=== PATIENT | male | born 1990 | race Caucasian/White ===

== ENCOUNTER 2016-05-23 16:42 | Emergency (ER) | payer BC ==
[2016-05-23] MEDS ORDERED: MORPHINE SULFATE 4 MG INJ IV ONE (16:51)
[2016-05-23 16:52] VITALS: O2SAT 94
[2016-05-23] MEDS ORDERED: Sodium Chloride 0.9% 1000 ML 1,000 ML ONE (16:56)
[2016-05-23] MEDS ORDERED: MORPHINE SULFATE 4 MG INJ ONE (16:56)
[2016-05-23] MEDS ORDERED: Sodium Chloride 0.9% 1000 ML 1,000 ML IV SCH (17:00)
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
[2016-05-23] MEDS ORDERED: BACIGUENT PACKET TP ONE (18:17)
[2016-05-23] MEDS ORDERED: BACIGUENT PACKET ONE (18:17)
[2016-05-23 18:47] VITALS: BP 128/69; PULSE 76
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
== END 2016-05-23 18:46 | disposition home or self-care (01) ==
LOC: ED 16:42
PROC: 0HQFXZZ Repair Right Hand Skin, External Approach (ICD-10-PCS; principal; 2016-05-23)
DX: S00.83XA Contusion of other part of head, initial encounter (principal); S60.221A Contusion of right hand, initial encounter; S01.81XA Laceration without foreign body of other part of head, initial encounter; S61.214A Laceration without foreign body of right ring finger without damage to nail, initial encounter; W33.02XA Accidental discharge of hunting rifle, initial encounter
CPT/HCPCS: 12001; 36000; 70486; 73130; 96360; 96361; 96374; 99283; J2270

== ENCOUNTER 2017-03-21 18:00 | Emergency (ER) | payer BC ==
[2017-03-21] MEDS ORDERED: Phenergan 25 MG INJ IV ONE (18:22)
[2017-03-21] MEDS ORDERED: Sodium Chloride 0.9% 1000 ML 1,000 ML IV STA (18:22)
[2017-03-21] MEDS ORDERED: Phenergan 25 MG INJ ONE (18:34)
[2017-03-21] MEDS ORDERED: Sodium Chloride 0.9% 1000 ML 1,000 ML ONE (18:34)
--- NOTE | 2017-03-21 18:39 | ERPHSYRPT ---
- History of Present Illness Time Seen by Provider: 03/21/17 18:10 Source: patient, other ([place]) Exam Limitations: no limitations Patient Subjective Stated Complaint: pt here for loose stools, vomiitng today, and back pain for 2 weeks with no injury Triage Nursing Assessment: pt alert, resp easy, skin w/d pink, moves all ext well, Physician History: FOR THE PAST 2 WEEKS PT HAS HAD NASAL CONGESTION, MID BACK PAIN AND COUGH PRODUCTIVE OF YELLOW PHLEGM; FOR THE PAST 2 DAYS A LEFT EARACHE AND SORE THROAT ; TODAY CHILLS, VOMITING X11 AND DIARRHEA X3 WITHOUT BLOOD. Allergies/Adverse Reactions: No Known Drug Allergies Allergy (Verified 03/21/17 18:20) Home Medications: Alprazolam 1 mg [Xanax 1 mg] 1 mg DAILY 03/21/17 [History] Quetiapine Fumarate [Seroquel] 25 mg DAILY 03/21/17 [History] Hx Tetanus, Diphtheria Vaccination/Date Given: Yes (UP TO DATE) Hx Influenza Vaccination/Date Given: No Hx Pneumococcal Vaccination/Date Given: No Immunizations Up to Date: Yes - Review of Systems Constitutional: Chills Ears, Nose, & Throat: Ear Pain, Nose Congestion, Throat Pain Respiratory: Cough Abdominal/Gastrointestinal: Vomiting, Diarrhea Musculoskeletal: Back Pain All Other Systems: Reviewed and Negative - Past Medical History Pertinent Past Medical History: No Neurological History: No Pertinent History - Past Surgical History Past Surgical History: Yes Musculoskeletal: Orthopedic Surgery - Social History Smoking Status: Never smoker Exposure to second hand smoke: No Drug Use: none Patient Lives Alone: No - Nursing Vital Signs Nursing Vital Signs: Initial Vital Signs Temperature 98.3 F 03/21/17 18:13 Pulse Rate 84 03/21/17 18:13 Respiratory Rate 16 03/21/17 18:13 Blood Pressure 120/82 03/21/17 18:13 O2 Sat by Pulse Oximetry 96 03/21/17 18:13 Pain Scale Pain Intensity 4 - Physical Exam General Appearance: alert Eye Exam: PERRL/EOMI Ears, Nose, Throat Exam: TM abnormal (L) (LEFT TM ERYTHEMATOUS), pharyngeal erythema Neck Exam: normal inspection Respiratory Exam: lungs clear Cardiovascular Exam: normal heart sounds Gastrointestinal/Abdomen Exam: soft, other (B.S. MILDLY HYPERACTIVE AND NORMOTONIC) Back Exam: normal inspection, normal range of motion Extremity Exam: normal inspection, No pedal edema Neurologic Exam: alert, cooperative Skin Exam: warm, dry SpO2 Interpretation: normal SpO2: 96 Oxygen Delivery: Room Air - Course Nursing assessment & vital signs reviewed: Yes Ordered Tests: Active Orders 24 hr Category Date Time Status Clean Catch Urine Specimen STAT Care 03/21/17 20:55 Active AMYLASE Stat Lab 03/21/17 18:25 Completed CBC W DIFF Stat Lab 03/21/17 18:25 Completed CMP Stat Lab 03/21/17 18:25 Completed CULTURE, THROAT Stat Lab 03/21/17 18:25 Received LIPASE Stat Lab 03/21/17 18:25 Completed MAG [MAGNESIUM] Stat Lab 03/21/17 18:25 Completed [place] Screen Stat Lab 03/21/17 18:25 Completed STREP SCREEN-BETA A Stat Lab 03/21/17 18:25 Completed UA W/RFX UR CULTURE Stat Lab 03/21/17 21:05 Completed Medication Summary Discontinued Medications Generic Name Dose Route Start Last Admin Trade Name Freq PRN Reason Stop Dose Admin Sodium Chloride 1,000 mls @ 999 mls/hr 03/21/17 18:22 03/21/17 18:36 Sodium Chloride 0.9% 1000 Ml IV 03/21/17 19:22 999 mls/hr .Q1H1M STA Administration Sodium Chloride Confirm 03/21/17 18:34 Sodium Chloride 0.9% 1000 Ml Administered 03/21/17 18:35 Dose 1,000 mls @ ud .ROUTE .STK-MED ONE Magnesium Sulfate/Dextrose 100 mls @ 200 mls/hr 03/21/17 19:42 03/21/17 19:48 Magnesium 1 Gm / 100 Ml D5w IV 03/21/17 20:11 200 mls/hr STAT ONE Administration Magnesium Sulfate/Dextrose Confirm 03/21/17 19:47 Magnesium 1 Gm / 100 Ml D5w Administered 03/21/17 19:48 Dose 100 mls @ ud IV .STK-MED ONE Promethazine HCl 12.5 mg 03/21/17 18:22 03/21/17 18:34 Phenergan 25 Mg Inj IV 03/21/17 18:23 12.5 mg STAT ONE Administration Promethazine HCl Confirm 03/21/17 18:34 Phenergan 25 Mg Inj Administered 03/21/17 18:35 Dose 25 mg .ROUTE .STK-MED ONE Lab/Rad Data: Laboratory Result Diagrams 03/21/17 18:25 03/21/17 18:25 Laboratory Results 03/21/17 03/21/17 03/21/17 Range/Units 21:05 18:25 18:25 WBC (4.0-10.5) K/mm3 RBC (4.1-5.6) M/mm3 Hgb (12.5-18.0) gm/dl Hct (42-50) % MCV (78-100) fl MCH (26-32) pg MCHC (32-36) g/dl RDW (11.5-14.0) % Plt Count (150-450) K/mm3 MPV (6-9.5) fl Gran % (36.0-66.0) % Lymphocytes % (24.0-44.0) % Monocytes % (0.0-12.0) % Eosinophils % (0.00-5.0) % Basophils % (0.0-0.4) % Basophils # (0-0.4) Sodium (136-145) mEq/L Potassium (3.5-5.1) mEq/L Chloride (98-107) mEq/L Carbon Dioxide (21-32) mEq/L Anion Gap (5-15) MEQ/L BUN (9-20) mg/dL Creatinine (0.55-1.30) mg/dl Estimated GFR ML/MIN Glucose (70-110) MG/DL Calcium (8.5-10.1) mg/dL Magnesium (1.8-2.4) mg/dL Total Bilirubin (0.2-1.0) mg/dL AST (15-37) U/L ALT (12-78) U/L Alkaline Phosphatase (46-116) U/L Serum Total Protein (6.4-8.2) gm/dL Albumin (3.4-5.0) g/dL Amylase (25-115) U/L Lipase (73-393) U/L Ur Collection Type CCMS Urine Color YELLOW (YELLOW) Urine Appearance CLEAR (CLEAR) Urine pH 7.0 (5-6) Ur Specific [place] 1.005 (1.005-1.025) Urine Protein NEGATIVE (Negative) Urine Ketones NEGATIVE (NEGATIVE) Urine Blood NEGATIVE (0-5) Damon/ul Urine Nitrite NEGATIVE (NEGATIVE) Urine Bilirubin NEGATIVE (NEGATIVE) Urine Urobilinogen NORMAL (0-1) mg/dL Ur Leukocyte Esterase NEGATIVE (NEGATIVE) Urine Culture Reflexed NO (NO) Urine Glucose NEGATIVE (NEGATIVE) mg/dL Monoscreen NEGATIVE (Negative) Influenza Type A Ag NEGATIVE (NEGATIVE) Influenza Type B Ag NEGATIVE (NEGATIVE) RSV (PCR) NEGATIVE (Negative) Streptococcus Screen (Negative) Specimen Received 03-21-172 03/21/17 03/21/17 03/21/17 Range/Units 18:25 18:25 18:25 WBC (4.0-10.5) K/mm3 RBC (4.1-5.6) M/mm3 Hgb (12.5-18.0) gm/dl Hct (42-50) % MCV (78-100) fl MCH (26-32) pg MCHC (32-36) g/dl RDW (11.5-14.0) % Plt Count (150-450) K/mm3 MPV (6-9.5) fl Gran % (36.0-66.0) % Lymphocytes % (24.0-44.0) % Monocytes % (0.0-12.0) % Eosinophils % (0.00-5.0) % Basophils % (0.0-0.4) % Basophils # (0-0.4) Sodium 142 (136-145) mEq/L Potassium 4.3 (3.5-5.1) mEq/L Chloride 105 (98-107) mEq/L Carbon Dioxide 29.2 (21-32) mEq/L Anion Gap 12.4 (5-15) MEQ/L BUN 19 (9-20) mg/dL Creatinine 1.18 (0.55-1.30) mg/dl Estimated GFR > 60 ML/MIN Glucose 102 (70-110) MG/DL Calcium 8.8 (8.5-10.1) mg/dL Magnesium 1.6 L (1.8-2.4) mg/dL Total Bilirubin 0.40 (0.2-1.0) mg/dL AST 17 (15-37) U/L ALT 26 (12-78) U/L Alkaline Phosphatase 73 (46-116) U/L Serum Total Protein 8.1 (6.4-8.2) gm/dL Albumin 4.4 (3.4-5.0) g/dL Amylase 51 (25-115) U/L Lipase 174 (73-393) U/L Ur Collection Type Urine Color (YELLOW) Urine Appearance (CLEAR) Urine pH (5-6) Ur Specific [place] (1.005-1.025) Urine Protein (Negative) Urine Ketones (NEGATIVE) Urine Blood (0-5) Damon/ul Urine Nitrite (NEGATIVE) Urine Bilirubin (NEGATIVE) Urine Urobilinogen (0-1) mg/dL Ur Leukocyte Esterase (NEGATIVE) Urine Culture Reflexed (NO) Urine Glucose (NEGATIVE) mg/dL Monoscreen (Negative) Influenza Type A Ag (NEGATIVE) Influenza Type B Ag (NEGATIVE) RSV (PCR) (Negative) Streptococcus Screen NEGATIVE (Negative) Specimen Received 03/21/17 Range/Units 18:25 WBC 10.2 (4.0-10.5) K/mm3 RBC 4.50 (4.1-5.6) M/mm3 Hgb 14.6 (12.5-18.0) gm/dl Hct 44.6 (42-50) % MCV 99.1 (78-100) fl MCH 32.4 H (26-32) pg MCHC 32.7 (32-36) g/dl RDW 12.9 (11.5-14.0) % Plt Count 215 (150-450) K/mm3 MPV 9.3 (6-9.5) fl Gran % 84.1 H (36.0-66.0) % Lymphocytes % 6.4 L (24.0-44.0) % Monocytes % 8.8 (0.0-12.0) % Eosinophils % 0.6 (0.00-5.0) % Basophils % 0.1 (0.0-0.4) % Basophils # 0.01 (0-0.4) Sodium (136-145) mEq/L Potassium (3.5-5.1) mEq/L Chloride (98-107) mEq/L Carbon Dioxide (21-32) mEq/L Anion Gap (5-15) MEQ/L BUN (9-20) mg/dL Creatinine (0.55-1.30) mg/dl Estimated GFR ML/MIN Glucose (70-110) MG/DL Calcium (8.5-10.1) mg/dL Magnesium (1.8-2.4) mg/dL Total Bilirubin (0.2-1.0) mg/dL AST (15-37) U/L ALT (12-78) U/L Alkaline Phosphatase (46-116) U/L Serum Total Protein (6.4-8.2) gm/dL Albumin (3.4-5.0) g/dL Amylase (25-115) U/L Lipase (73-393) U/L Ur Collection Type Urine Color (YELLOW) Urine Appearance (CLEAR) Urine pH (5-6) Ur Specific [place] (1.005-1.025) Urine Protein (Negative) Urine Ketones (NEGATIVE) Urine Blood (0-5) Damon/ul Urine Nitrite (NEGATIVE) Urine Bilirubin (NEGATIVE) Urine Urobilinogen (0-1) mg/dL Ur Leukocyte Esterase (NEGATIVE) Urine Culture Reflexed (NO) Urine Glucose (NEGATIVE) mg/dL Monoscreen (Negative) Influenza Type A Ag (NEGATIVE) Influenza Type B Ag (NEGATIVE) RSV (PCR) (Negative) Streptococcus Screen (Negative) Specimen Received - Departure Time of Disposition: 22:10 Departure Disposition: Home Clinical Impression: VOMITING, DIARRHEA, HYPOMAGNESEMIA, LOM, PHARYNGITIS Condition: Stable Critical Care Time: No Referrals: SAMRA MCCURDY [Primary Care Provider] - Instructions: Vomiting -- Adult, Diarrhea and Traveler's Diarrhea -- Adult, Pharyngitis/Tonsillopharyngitis -- Adult, Otitis Media (Middle Ear Infection) Additional Instructions: FOLLOW UP WITH PRIVATE DOCTOR TOMORROW. Prescriptions: Ondansetron [Zofran Odt] 4 mg PO Q4H PRN PRN #14 tab.rapdis PRN Reason: Nausea/Vomiting Azithromycin 250 mg [Zithromax 250 MG TABLET] 250 mg PO ZPACK #6 tablet
[2017-03-21 18:42] LABS: BASOPHIL % 0.1 % (0.0-0.4); Eosinophil % 0.6 % (0.00-5.0); Granulocytes % 84.1 % (36.0-66.0); Lymphocytes % 6.4 % (24.0-44.0); Mean Cell Volume 99.1 fl (78-100); Mean Corpuscular Hemoglobin 32.4 pg (26-32); Mean Platelet Volume 9.3 fl (6-9.5); Monocytes % 8.8 % (0.0-12.0); Platelet Count 215 K/mm3 (150-450); Red Cell Distribution Width 12.9 % (11.5-14.0); White Blood Count 10.2 K/mm3 (4.0-10.5)
[2017-03-21 19:04] LABS: ALBUMIN 4.4 g/dL (3.4-5.0); ALKALINE PHOSPHATASE 73 U/L (46-116); ANION GAP 12.4 MEQ/L (5-15); BLOOD UREA NITROGEN 19 mg/dL (9-20); CHLORIDE 105 mEq/L (98-107); Carbon Dioxide 29.2 mEq/L (21-32); Glucose 102 MG/DL (70-110); LIPASE 174 U/L (73-393); Potassium 4.3 mEq/L (3.5-5.1); SGOT/AST 17 U/L (15-37); SGPT/ALT 26 U/L (12-78); SODIUM 142 mEq/L (136-145); Total Protein 8.1 gm/dL (6.4-8.2)
[2017-03-21] MEDS ORDERED: Magnesium 1 Gm / 100 Ml D5W*** 100 ML IV ONE ×2 (19:42→19:47)
[2017-03-21 21:09] LABS: Bilirubin NEGATIVE (NEGATIVE); Blood NEGATIVE Ery/ul (0-5); Collection Type CCMS; Glucose NEGATIVE (NEGATIVE); Leukocyte Esterase NEGATIVE (NEGATIVE)
[2017-03-21 21:10] LABS: ADD URINE CULTURE? NO (NO); COMPLETE URINE MICROSCOPIC? NO
[2017-03-21] MEDS ORDERED: ROCEPHIN 1 Gm-D5w 50 ml Bag** 1 G/50 ML IVPB IV STA (22:10)
[2017-03-21 22:11] VITALS: O2SAT 96
[2017-03-21] MEDS ORDERED: Zofran 4 MG/2 ML VIAL IV ONE (22:11)
[2017-03-21] MEDS ORDERED: ROCEPHIN 1 Gm-D5w 50 ml Bag** 1 G/50 ML IVPB IV ONE (22:19)
[2017-03-21] MEDS ORDERED: Zofran 4 MG/2 ML VIAL ONE (22:19)
[2017-03-21 23:03] VITALS: BP 124/72; PULSE 81
== END 2017-03-21 23:25 | disposition home or self-care (01) ==
LOC: ED 18:00
DX: R11.2 Nausea with vomiting, unspecified (principal); R19.7 Diarrhea, unspecified; E83.42 Hypomagnesemia; H66.92 Otitis media, unspecified, left ear; J02.9 Acute pharyngitis, unspecified
CPT/HCPCS: 36415; 80053; 81002; 82150; 83690; 83735; 85025; 86308; 87070; 87430; 87631; 96360; 96365; 96367; 96374; 96375; 99284; J0696; J2405; J2550; J3475

== ENCOUNTER 2020-12-31 15:42 | Emergency (ER) | payer BC, OTHER ==
--- NOTE | 2020-12-31 17:16 | XRAY ---
Indication: Pain. Comparison: None 3 nonweightbearing views left foot demonstrates old calcaneus fracture with intact orthopedic screw. No other bony, articular, or soft tissue abnormalities.
--- NOTE | 2020-12-31 17:16 | XRAY ---
Indication: Pain. Comparison: None 3 view left ankle demonstrates old calcaneus fracture with intact orthopedic screw. No other bony, articular, or soft tissue abnormalities.
--- NOTE | 2020-12-31 17:16 | XRAY ---
Indication: Pain. Comparison: None 3 view left knee demonstrates normal bones, articulation, and soft tissues.
[2020-12-31 18:08] VITALS: BP 129/72; PULSE 74; O2SAT 98
--- NOTE | 2020-12-31 18:24 | ERPHSYRPT ---
- History of Present Illness Time Seen by Provider: 12/31/20 16:59 Source: patient Patient Subjective Stated Complaint: L foot/ankle pain. Triage Nursing Assessment: pt to ED c/o L foot/ankle pain. pt has had multiple surgeries and chronic pain with this area. rates 10/15 now. is still working and ambulatory on L foot. reports he was supposedto have MRI around 1 year ago but was not able to at the time. now is wanting to be seen again for increasing pain and problems in regards to L ankle. Physician History: Patient is a 30-year-old male with a history of chronic left ankle pain. Patient states he fractured his calcaneus and ankle when he was 18 years old. Patient states that as of late he has been experiencing worsening ankle pain. No trauma. Patient states his job requires prolonged standing. He believes that his work is exacerbating his pain. Patient states the pain is so bad he has to crawl into his house after work. Symptoms are mild to moderate in intensity. Pain worse after working long periods of time. No numbness tingling or weakness. Patient has chronic limited range of motion his left ankle from his previous injury. Patient otherwise feels well he voices no other complaints concerns at this time. Method of Injury: sports injury (Football injury 12 years ago.) Occurred: other (Chronic pain progressively worsening over the past several weeks.) Quality: constant, aching Severity of Pain-Max: moderate Severity of Pain-Current: mild Lower Extremities Pain: ankle: left Modifying Factors: Improves With: other (Weightbearing left lower extremity reproduces pain.) Associated Symptoms: none Allergies/Adverse Reactions: No Known Drug Allergies Allergy (Verified 03/21/17 18:20) Home Medications: ALPRAZolam 1 MG [Xanax 1 mg] 1 mg DAILY 03/21/17 [History] Quetiapine Fumarate [Seroquel] 25 mg DAILY 03/21/17 [History] Hx Tetanus, Diphtheria Vaccination/Date Given: Yes (UP TO DATE) Hx Influenza Vaccination/Date Given: No Hx Pneumococcal Vaccination/Date Given: No Immunizations Up to Date: No Travel Risk - International Travel Have you traveled outside of the country in past 3 weeks: No - Coronavirus Screening Are you exhibiting any of the following symptoms?: No Close contact with a COVID-19 positive Pt in past 14-21 Days: No - Vaccine Status Have you recieved a Covid-19 vaccination: No - Review of Systems Constitutional: No Symptoms, No Fever, No Chills Eyes: No Symptoms Ears, Nose, & Throat: No Symptoms Respiratory: No Symptoms, No Cough, No Dyspnea Cardiac: No Symptoms, No Chest Pain, No Edema, No Syncope Abdominal/Gastrointestinal: No Symptoms, No Abdominal Pain, No Nausea, No Vomiting, No Diarrhea Genitourinary Symptoms: No Symptoms, No Dysuria Musculoskeletal: No Symptoms, No Back Pain, No Neck Pain Skin: No Symptoms, No Rash Neurological: No Symptoms, No Dizziness, No Focal Weakness, No Sensory Changes Psychological: No Symptoms Endocrine: No Symptoms Hematologic/Lymphatic: No Symptoms Immunological/Allergic: No Symptoms All Other Systems: Reviewed and Negative - Past Medical History Pertinent Past Medical History: No Neurological History: No Pertinent History - Past Surgical History Past Surgical History: Yes Musculoskeletal: Orthopedic Surgery Other Surgical History: multi surgeries to L ankle/foot - Social History Smoking Status: Never smoker Exposure to second hand smoke: No Drug Use: none Patient Lives Alone: No - Nursing Vital Signs Nursing Vital Signs: Initial Vital Signs Pulse Rate 89 12/31/20 16:47 Respiratory Rate 16 12/31/20 16:47 Blood Pressure 142/94 12/31/20 16:47 O2 Sat by Pulse Oximetry 95 12/31/20 16:47 Pain Scale Pain Intensity 6 - Physical Exam General Appearance: no apparent distress, alert Eyes, Ears, Nose, Throat Exam: moist mucous membranes Neck Exam: non-tender, supple Cardiovascular/Respiratory Exam: chest non-tender, normal breath sounds, regular rate/rhythm, no respiratory distress Gastrointestinal/Abdominal Exam: non-tender, soft Back Exam: normal inspection, normal range of motion, No vertebral tenderness Hips Exam: bilateral: non-tender, normal inspection, normal range of motion, no evidence of injury Legs Exam: bilateral leg: non-tender, normal inspection, normal range of motion, no evidence of injury Knees Exam: bilateral knee: non-tender, normal inspection, normal range of motion, no evidence of injury Ankle Exam: right ankle: non-tender, normal inspection, normal range of motion, no evidence of injury, left ankle: soft tissue tenderness, swelling, other (Left ankle has minimal swelling. Overlying soft tissue intact. No signs of blunt trauma. No ecchymosis. No deformity. Extremities neurovascular intact distally.) Foot Exam: bilateral foot: non-tender, normal inspection, normal range of motion, no evidence of injury Neuro/Tendon Exam: normal sensation, normal motor functions Mental Status Exam: alert, oriented x 3, cooperative Skin Exam: normal color, warm, dry SpO2 Interpretation: normal SpO2: 98 O2 Delivery: Room Air - Course Nursing assessment & vital signs reviewed: Yes - Radiology Exams Ankle X-ray Interpretation: Teleradiologist Report (No acute fractures or dislocations.) Foot X-ray Interpretation: Teleradiologist Report (No acute fractures or dislocations. Old healed calcaneal fracture. Intact hardware) Knee X-ray Interpretation: Teleradiologist Report (No fractures or dislocations.) Ordered Tests: Active Orders 24 hr Category Date Time Status ANKLE (3 VIEWS) Stat Exams 12/31/20 16:45 Completed FOOT (MINIMUM 3 VIEWS) Stat Exams 12/31/20 16:46 Completed KNEE (3 VIEWS) Stat Exams 12/31/20 16:45 Completed - Progress Progress: improved Progress Note: Patient reassessed. Patient's pain significantly improves at rest. X-rays show old calcaneal fracture with intact hardware. No acute fractures. No soft tissue abnormalities. We will refer patient to our podiatry clinic for further evaluation and treatment. Patient voiced no other complaints at this time. Patient will follow up within 48 hours as discussed. Portions of this note were created with voice recognition technology. There may be grammatical, spelling, punctuation or sound alike errors 12/31/20 18:27 Counseled pt/family regarding: diagnosis, need for follow-up, rad results - Departure Departure Disposition: Home Clinical Impression: Ankle pain, left Condition: Stable Critical Care Time: No Referrals: DOCTOR,NO FAMILY [Primary Care Provider] - WALLY ONEILL DPM [ACTIVE STAFF] - Additional Instructions: Discharge/Care Plan RG GUPTAYamila ORTA was seen on 12/31/20 in the Emergency Room. The patient was counseled regarding Diagnosis,Lab results, Imaging studies, need for follow up and when to return to the Emergency Room. Prescriptions given: Discharge Note I have spoken with the patient and/or caregivers. I have explained the patient's condition, diagnosis and treatment plan based on the information available to me at this time. I have answered the patient's and/or caregiver's questions and addressed any concerns. The patient and/or caregivers have as good understanding of the patient's diagnosis, condition and treatment plan as can be expected at this point. The vital signs have been stable. The patient's condition is stable and appropriate for discharge from the emergency department. The patient will pursue further outpatient evaluation with the primary care physician or other designated or consulting physician as outlined in the discharge instructions. The patient and/or caregivers are agreeable to this plan of care and follow-up instructions have been explained in detail. The patient and/or caregivers have received these instruction. The patient/and or caregivers are aware that any significant change in condition or worsening of symptoms should prompt an immediate return to this or the closest emergency department or call 911.
== END 2020-12-31 18:47 | disposition home or self-care (01) ==
LOC: ED 15:42
DX: M25.572 Pain in left ankle and joints of left foot (principal); Z98.890 Other specified postprocedural states
CPT/HCPCS: 73562; 73610; 73630; 99284; L4386

== ENCOUNTER 2021-03-26 09:46 | Observation (INO) | payer OTHER ==
[~2021-03-26 09:46] MED LIST: BRIDION 200MG/2ML IV ONE; BUPIVACAINE 0.5% VIAL IJ ONE; DIPRIVAN 200 MG/20 ML IV ONE; Decadron 4 MG INJ ONE; Lactated Ringers 1,000 ML IV ONE; XYLOCAINE 1% HCL 20 ML MDV ONE; Xylocaine-Mpf 2% 5 Ml Vial ONE; Zemuron 100 MG/10 ML ONE; Zofran 4 MG/2 ML VIAL ONE
[2021-03-26] MEDS ORDERED: SUBLIMAZE 100 MCG/2 ML ONE ×2 (10:39→14:13)
[2021-03-26] MEDS ORDERED: Versed 2 MG/2 ML Injection ONE (10:39)
[2021-03-26] MEDS ORDERED: CEFAZOLIN 2 GM-D5W BAG** 2 GM/50 ML ML IV ONE (10:49)
[2021-03-26] MEDS ORDERED: Lactated Ringers 1,000 ML IV ONE ×2 (10:49→14:02)
[2021-03-26] MEDS: Lactated Ringers 1,000 ML IV SCH ×2 (10:56→23:50)
[2021-03-26] MEDS ORDERED: CEFAZOLIN 2 GM-D5W BAG** 2 GM/50 ML ML IV SCH (11:00)
[2021-03-26] MEDS ORDERED: Zemuron 100 MG/10 ML ONE ×3 (14:07→16:43)
[2021-03-26] MEDS ORDERED: Naropin 0.5% 30 ML VIAL ONE ×2 (15:44→17:01)
[2021-03-26] MEDS ORDERED: DILAUDID 2 MG INJECTION ONE (16:34)
[2021-03-26] MEDS ORDERED: Zofran 4 MG/2 ML VIAL ONE (18:19)
[2021-03-26] MEDS ORDERED: TORAdol 30 mg Injection ONE (18:34)
[2021-03-26] MEDS ORDERED: Compazine 10 MG/2 ML ONE (18:48)
[2021-03-26 21:11] LABS: INFLUENZA A NEGATIVE (NEGATIVE); INFLUENZA B NEGATIVE (NEGATIVE); RESPIRATORY SYNCTIAL VIRUS NEGATIVE (Negative); SARS-CoV-2 Xpert Express NEGATIVE (NEGATIVE)
[2021-03-26] MEDS ORDERED: Zofran 4 MG/2 ML VIAL IV PRN (21:36)
[2021-03-26] MEDS: NORCO 5/325 MG PO PRN (22:09)
--- NOTE | 2021-03-26 22:21 | XRAY ---
Indication: Subtalar arthrodesis. Intraoperative fluoroscopy provided for 5 minutes 20 seconds. 19 digital spot images submitted for interpretation ultimately demonstrates posterior calcaneus osteotomy with 3 intact orthopedic screws and proximal 1st metatarsal osteotomy with single intact screw. Correlate with intraoperative findings/report.
[2021-03-27 06:54] LABS: Absolute Neutrophil Ct (ANC) 11.47 (1.4-6.9); BASOPHIL % 0.1 % (0.0-0.4); Basophil (Absolute #) 0.01 (0-0.4); Eosinophil % 0.1 % (0.00-5.0); Eosinophil (Absolute #) 0.01 (0-0.5); Hematocrit 39.7 % (42-50); Hemoglobin 12.9 gm/dl (12.5-18.0); Lymphocyte (Absolute #) 1.97 (1.0-4.6); Lymphocytes % 13.1 % (24.0-44.0); Mean Cell Volume 99.3 fl (78-100); Mean Corpuscular Hemoglobin 32.3 pg (26-32); Mean Corpuscular Hgb Concent. 32.5 g/dl (32-36); Monocyte (Absolute #) 1.57 (0.0-1.3); Monocytes % 10.4 % (0.0-12.0); Neutrophil % 76.3 % (36.0-66.0); Platelet Count 285 K/mm3 (150-450)
[2021-03-27] MEDS: NORCO 5/325 MG PO PRN ×2 (07:07→11:48)
[2021-03-27 07:09] LABS: ALBUMIN 4.3 g/dL (3.5-5.0); ALKALINE PHOSPHATASE 62 U/L (38-126); ANION GAP 13.6 MEQ/L (5-15); BLOOD UREA NITROGEN 14 mg/dL (9-20); CHLORIDE 101 mmol/L (98-107); Calcium 9.1 mg/dL (8.4-10.2); Carbon Dioxide 26 mmol/L (22-30); EST GLOMERULAR FILTRATION RATE > 60.0 ML/MIN; Glucose 130 mg/dL (74-106); Potassium 4.6 mmol/L (3.5-5.1); SGOT/AST 25 U/L (17-59); SGPT/ALT 25 U/L (0-50); SODIUM 136 mmol/L (137-145); Total Protein 7.2 g/dL (6.3-8.2)
--- NOTE | 2021-03-27 07:48 | PCM.NOTE ---
Date and Time: 03/27/21 0743 Subjective Assessment: Patient seen at bedside this morning resting comfortably and awake. He is status post gastrocnemius resection, subtalar joint arthrodesis and dorsiflexor he wedge osteotomy of first metatarsal. Patient admitted observation under the care of Dr. Anam Diana for low oxygen saturation status post general anesthesia. Patient this morning satting at 96%. Some complaints of knee pain last night have largely resolved. He indicates some of the postoperative block has worn off and he is able to feel his left foot at this time. He is only taken 1 oral [place] 5/325 milligrams this a.m. Patient indicates that he has been nonweightbearing to the left lower extremity and use the restroom with the assistance of a walker. He denies any calf pain any shortness of breath. He denies any constitutional symptoms of infection. He denies any other pedal complaints at this time Physical Exam - Narrative Narrative Physical Exam: Podiatry Physical Exam Palpable pedal pulses to the right lower extremity Dressing clean dry and intact to the left lower extremity extending to the mid calf. No pain on compression with medial lateral squeeze of calf. Able to wiggle toes. Foot remains in orthogonal position relative to the leg OBJECTIVE DATA Vital Signs: Vital Signs - 24 hr Temp Pulse Resp BP BP Pulse Ox 03/27/21 04:00 97.3 F 66 16 146/71 98 03/26/21 21:58 94 L 03/26/21 21:34 97.4 F 70 18 143/90 96 03/26/21 21:33 97.4 F 70 18 143/90 96 03/26/21 20:40 97.8 F 76 18 123/76 92 L 03/26/21 20:30 97 F 80 16 127/28 93 L 03/26/21 20:05 97 F 79 16 125/87 93 L 03/26/21 19:50 97 F 79 16 125/87 92 L 03/26/21 19:35 96.8 F 82 16 125/81 94 L 03/26/21 19:20 96.1 F 88 18 138/87 94 L 03/26/21 19:06 98.7 F 86 18 119/81 95 03/26/21 10:39 98.7 F 85 18 137/95 95 03/26/21 10:25 98.7 F 85 18 137/95 95 Pain Assessment - Last Documented Pain Intensity 4 Pain Scale Used 0-10 Pain Scale Intake and Output: Intake & Output 03/24/21 03/25/21 03/26/21 03/27/21 11:59 11:59 11:59 11:59 Intake Total 1776 Output Total 1900 Balance -124 Weight 98.8 kg 98.8 kg Lab Results: Lab Results-Last 24 Hours 03/26/21 03/27/21 03/27/21 Range/Units 20:24 06:00 06:00 WBC 15.0 H (4.0-10.5) K/mm3 RBC 4.00 L (4.1-5.6) M/mm3 Hgb 12.9 (12.5-18.0) gm/dl Hct 39.7 L (42-50) % MCV 99.3 (78-100) fl MCH 32.3 H (26-32) pg MCHC 32.5 (32-36) g/dl RDW 13.0 (11.5-14.0) % Plt Count 285 (150-450) K/mm3 MPV 9.0 (7.5-11.0) fl Gran % 76.3 H (36.0-66.0) % Eos # (Auto) 0.01 (0-0.5) Absolute Lymphs (auto) 1.97 (1.0-4.6) Absolute Monos (auto) 1.57 H (0.0-1.3) Lymphocytes % 13.1 L (24.0-44.0) % Monocytes % 10.4 (0.0-12.0) % Eosinophils % 0.1 (0.00-5.0) % Basophils % 0.1 (0.0-0.4) % Absolute Granulocytes 11.47 H (1.4-6.9) Basophils # 0.01 (0-0.4) Sodium 136 L (137-145) mmol/L Potassium 4.6 (3.5-5.1) mmol/L Chloride 101 (98-107) mmol/L Carbon Dioxide 26 (22-30) mmol/L Anion Gap 13.6 (5-15) MEQ/L BUN 14 (9-20) mg/dL Creatinine 0.90 (0.66-1.25) mg/dL Estimated GFR > 60.0 ML/MIN Glucose 130 H (74-106) mg/dL Calcium 9.1 (8.4-10.2) mg/dL Total Bilirubin 0.50 (0.2-1.3) mg/dL AST 25 (17-59) U/L ALT 25 (0-50) U/L Alkaline Phosphatase 62 (38-126) U/L Serum Total Protein 7.2 (6.3-8.2) g/dL Albumin 4.3 (3.5-5.0) g/dL Influenza Type A Ag NEGATIVE (NEGATIVE) Influenza Type B Ag NEGATIVE (NEGATIVE) RSV (PCR) NEGATIVE (Negative) SARS-CoV-2 (PCR) NEGATIVE (NEGATIVE) Radiology Exams: Radiology Procedures Category Date Time Status FLUOROSCOPY UP TO 1 HR Routine Exams 03/26/21 12:27 Taken FOOT (2 VIEWS) Routine Exams 03/26/21 12:27 Completed Multi-Disciplinary Progress Notes: Multi-Disciplinary Progress Notes 03/26/21 21:06 Nutrition Note by Kendal Pfeiffer [id number] pt off unit to med surg room 102 Initialized on 03/26/21 21:06 - END OF NOTE Assessment/Plan (1) Low oxygen saturation Current Visit: Yes Status: Acute Assessment & Plan: Patient examination evaluation. Patient progressing without complication oxygen saturation has increased to 96% at this time. Patient's pain is being managed with the block as well as [place] at this time. Patient will continue this regimen on an outpatient basis. Patient to be nonweightbearing to left lower extremity. Crutches on discharge. They will be brought in by his . DVT prophylaxis aspirin 325 mg p.o. daily. Pain control [place] 5 325 p.o. every 6 hours alternate every 6 hours with ibuprofen 600 mg Infection prophylaxis cephalexin 500 mg every 6 hours Discharge okay from my standpoint if okay from Dr. Anam Diana's standpoint. Patient will follow up on Monday of next week in my office appointment set at 9:30 AM Code(s): R79.81 - ABNORMAL BLOOD-GAS LEVEL (2) Postoperative pain of extremity Current Visit: Yes Status: Acute Code(s): G89.18 - OTHER ACUTE POSTPROCEDURAL PAIN; M79.609 - PAIN IN UNSPECIFIED LIMB
--- NOTE | 2021-03-27 11:47 | PCM.SSS ---
History of Present Illness - Chief Complaint Chief Complaint: Post Op Desaturation History of Present Illness: is a 30 year old male pt of Dr. Winchester who was hypoxemic s/p foot surgery yesterday. PACU called with O2 sats into the 80s when he was asleep, so he was directly admitted for further observation. He was requiring 2L O2 overnight; this morning woke up and has been fine off of O2 ever since. He is anxious to go home. He has had multiple surgeries of the L foot s/p trauma in high school. He has PMHx of R femur fx with surgery as a child and tonsils and adenoids removed. He does chew tobacco; occasional alcohol. Not on any prescription meds prior to this surgery. Will be discharged to home. F/u with Dr. Winchester as directed. F/u with PCP in 1-2 weeks. - Review of Systems Musculoskeletal: Injury (LLE) Psychological: No Anxiety, No Depression All Other Systems: Reviewed and Negative Medications & Allergies Home Medications: Home Medication List Acetaminophen 325 mg [Tylenol 325 mg] 650 mg PO Q4HPRN PRN 03/19/21 [History Confirmed 03/19/21] Ibuprofen 200 mg [Motrin 200 mg] 400 mg PO Q4HPRN PRN 03/19/21 [History Co nfirmed 03/26/21] Allergies/Adverse Reactions: Allergies Allergy/AdvReac Type Severity Reaction Status Date / Time No Known Drug Allergies Allergy Verified 03/26/21 10:37 - Past Medical History Past Medical History: No Neurological History: No Pertinent History ENT History: No Pertinent History Cardiac History: No Pertinent History Respiratory History: No Pertinent History Endocrine Medical History: No Pertinent History Musculoskelatal History: Fractures GI Medical History: No Pertinent History History: No Pertinent History Male Reproductive Disorders: No Pertinent History Comment: R femur fx 2003. L foot multiple surgeries - Past Surgical History Past Surgical History: Yes Neuro Surgical History: No Pertinent History Cardiac History: No Pertinent History Respiratory Surgery: No Pertinent History GI Surgical History: No Pertinent History Genitourinary Surgical Hx: No Pertinent History Musculskeletal Surgical Hx: Orthopedic Surgery Male Surgical History: No Pertinent History Other Surgical History: multiple surgeries to L ankle/foot - Social History Smoking Status: Never smoker Exposure to second hand smoke: No Alcohol: Occasionally Drug Use: none - Physical Exam Vital Signs: Vital Signs - 24 hr Temp Pulse Resp BP BP BP Pulse Ox 03/27/21 08:26 94 L 03/27/21 08:00 96.9 F 91 H 16 128/74 97 03/27/21 04:00 97.3 F 66 16 146/71 98 03/26/21 21:58 94 L 03/26/21 21:34 97.4 F 70 18 143/90 96 03/26/21 21:33 97.4 F 70 18 143/90 96 03/26/21 20:40 97.8 F 76 18 123/76 92 L 03/26/21 20:30 97 F 80 16 127/28 93 L 03/26/21 20:05 97 F 79 16 125/87 93 L 03/26/21 19:50 97 F 79 16 125/87 92 L 03/26/21 19:35 96.8 F 82 16 125/81 94 L 03/26/21 19:20 96.1 F 88 18 138/87 94 L 03/26/21 19:06 98.7 F 86 18 119/81 95 General Appearance: no apparent distress, alert Neurologic Exam: oriented x 3, cooperative Eye Exam: eyes nml inspection Ears, Nose, Throat Exam: moist mucous membranes Neck Exam: normal inspection, non-tender, No lymphadenopathy Respiratory Exam: normal breath sounds, lungs clear, No crackles/rales, No rhonchi, No wheezing Cardiovascular Exam: regular rate/rhythm, normal heart sounds, No murmur Gastrointestinal/Abdomen Exam: soft, normal bowel sounds, No tenderness, No distention, No mass, No guarding, No rebound Extremity Exam: other (LLE wrapped; toes are warm with some motion. RLE without c/c/e.) Skin Exam: normal color, warm, dry, No rash Results - Labs Lab/Micro Results: Lab Results-Last 24 Hours 03/26/21 03/27/21 03/27/21 Range/Units 20:24 06:00 06:00 WBC 15.0 H (4.0-10.5) K/mm3 RBC 4.00 L (4.1-5.6) M/mm3 Hgb 12.9 (12.5-18.0) gm/dl Hct 39.7 L (42-50) % MCV 99.3 (78-100) fl MCH 32.3 H (26-32) pg MCHC 32.5 (32-36) g/dl RDW 13.0 (11.5-14.0) % Plt Count 285 (150-450) K/mm3 MPV 9.0 (7.5-11.0) fl Gran % 76.3 H (36.0-66.0) % Eos # (Auto) 0.01 (0-0.5) Absolute Lymphs (auto) 1.97 (1.0-4.6) Absolute Monos (auto) 1.57 H (0.0-1.3) Lymphocytes % 13.1 L (24.0-44.0) % Monocytes % 10.4 (0.0-12.0) % Eosinophils % 0.1 (0.00-5.0) % Basophils % 0.1 (0.0-0.4) % Absolute Granulocytes 11.47 H (1.4-6.9) Basophils # 0.01 (0-0.4) Sodium 136 L (137-145) mmol/L Potassium 4.6 (3.5-5.1) mmol/L Chloride 101 (98-107) mmol/L Carbon Dioxide 26 (22-30) mmol/L Anion Gap 13.6 (5-15) MEQ/L BUN 14 (9-20) mg/dL Creatinine 0.90 (0.66-1.25) mg/dL Estimated GFR > 60.0 ML/MIN Glucose 130 H (74-106) mg/dL Calcium 9.1 (8.4-10.2) mg/dL Total Bilirubin 0.50 (0.2-1.3) mg/dL AST 25 (17-59) U/L ALT 25 (0-50) U/L Alkaline Phosphatase 62 (38-126) U/L Serum Total Protein 7.2 (6.3-8.2) g/dL Albumin 4.3 (3.5-5.0) g/dL Influenza Type A Ag NEGATIVE (NEGATIVE) Influenza Type B Ag NEGATIVE (NEGATIVE) RSV (PCR) NEGATIVE (Negative) SARS-CoV-2 (PCR) NEGATIVE (NEGATIVE) - Radiology Impressions Radiology Exams & Impressions: Radiology Procedures Category Date Time Status FLUOROSCOPY UP TO 1 HR Routine Exams 03/26/21 12:27 Taken FOOT (2 VIEWS) Routine Exams 03/26/21 12:27 Completed - Other Procedures and Tests Respiratory Therapy 03/26/21 21:34 Oxygen Nasal Cannula 2 lpm Assessment/Plan (1) Hypoxemia Current Visit: Yes Status: Resolved Assessment & Plan: Resolved. Should consider having sleep study outpatient; needs to f/u with PCP in 1-2 week (september f/u with me if needed). Code(s): R09.02 - HYPOXEMIA (2) s/p ankle surgery Current Visit: Yes Status: Acute Assessment & Plan: POD #1 - f/u with Dr. Winchester [facility] Summary - Vitals & Intake/Output Vital Signs: Vital Signs Temperature 96.9 F 03/27/21 08:00 Pulse Rate 91 H 03/27/21 08:00 Respiratory Rate 16 03/27/21 08:00 Blood Pressure 128/74 03/27/21 08:00 O2 Sat by Pulse Oximetry 94 L 03/27/21 08:26 Intake & Output: Intake & Output 03/24/21 03/25/21 03/26/21 03/27/21 11:59 11:59 11:59 11:59 Intake Total 2616 Output Total 2500 Balance 116 Weight 98.8 kg 98.8 kg - Lab Result Diagrams: 03/27/21 06:00 03/27/21 06:00 Lab Results-Last 24 Hrs: Lab Results-Last 24 Hours 03/26/21 03/27/21 03/27/21 Range/Units 20:24 06:00 06:00 WBC 15.0 H (4.0-10.5) K/mm3 RBC 4.00 L (4.1-5.6) M/mm3 Hgb 12.9 (12.5-18.0) gm/dl Hct 39.7 L (42-50) % MCV 99.3 (78-100) fl MCH 32.3 H (26-32) pg MCHC 32.5 (32-36) g/dl RDW 13.0 (11.5-14.0) % Plt Count 285 (150-450) K/mm3 MPV 9.0 (7.5-11.0) fl Gran % 76.3 H (36.0-66.0) % Eos # (Auto) 0.01 (0-0.5) Absolute Lymphs (auto) 1.97 (1.0-4.6) Absolute Monos (auto) 1.57 H (0.0-1.3) Lymphocytes % 13.1 L (24.0-44.0) % Monocytes % 10.4 (0.0-12.0) % Eosinophils % 0.1 (0.00-5.0) % Basophils % 0.1 (0.0-0.4) % Absolute Granulocytes 11.47 H (1.4-6.9) Basophils # 0.01 (0-0.4) Sodium 136 L (137-145) mmol/L Potassium 4.6 (3.5-5.1) mmol/L Chloride 101 (98-107) mmol/L Carbon Dioxide 26 (22-30) mmol/L Anion Gap 13.6 (5-15) MEQ/L BUN 14 (9-20) mg/dL Creatinine 0.90 (0.66-1.25) mg/dL Estimated GFR > 60.0 ML/MIN Glucose 130 H (74-106) mg/dL Calcium 9.1 (8.4-10.2) mg/dL Total Bilirubin 0.50 (0.2-1.3) mg/dL AST 25 (17-59) U/L ALT 25 (0-50) U/L Alkaline Phosphatase 62 (38-126) U/L Serum Total Protein 7.2 (6.3-8.2) g/dL Albumin 4.3 (3.5-5.0) g/dL Influenza Type A Ag NEGATIVE (NEGATIVE) Influenza Type B Ag NEGATIVE (NEGATIVE) RSV (PCR) NEGATIVE (Negative) SARS-CoV-2 (PCR) NEGATIVE (NEGATIVE) - Radiology Exams Ordered Rad Exams-Entire Visit: Radiology Procedures Category Date Time Status FLUOROSCOPY UP TO 1 HR Routine Exams 03/26/21 12:27 Taken FOOT (2 VIEWS) Routine Exams 03/26/21 12:27 Completed - Procedures and Test Procedures and Tests throughout Hospitalization: Therapy Orders & Screens 03/26/21 21:34 Oxygen Nasal Cannula 2 lpm Comment: to keep sats >90% Diagnosis: Post Op Desaturation - Discharge Disposition: Home, Self-Care Condition: Good Prescriptions: Continue Acetaminophen 325 mg [Tylenol 325 mg] 650 mg PO Q4HPRN PRN PRN Reason: Pain Ibuprofen 200 mg [Motrin 200 mg] 400 mg PO Q4HPRN PRN PRN Reason: Pain Follow up with: DOCTOR,NO FAMILY [Primary Care Provider] -
--- NOTE | 2021-03-27 20:27 | XRAY ---
5 minutes and 20 seconds of fluoroscopy was used in surgery for a left foot.
--- NOTE | 2021-03-29 14:11 | OP ---
SURGERY DATE/TIME: 03/26/2021 1348 PREOPERATIVE DIAGNOSES: 1) Gastrocnemius equinus. 2) Subtalar joint osteoarthritis. 3) Pes cavus. POSTOPERATIVE DIAGNOSES: 1) Gastrocnemius equinus. 2) Subtalar joint osteoarthritis. 3) Pes cavus. PROCEDURES: 1) Gastrocnemius resection. 2) Subtalar joint arthrodesis. 3) Dorsiflexory wedge osteotomy. 4) Bone marrow aspirate harvest. SURGEON: Ranulfo Samson DPM. FACILITATOR: None. ANESTHESIA: General plus a postoperative popliteal and saphenous block. HEMOSTASIS: Thigh tourniquet set to 110 minutes total tourniquet time. ESTIMATED BLOOD LOSS: Less than 50 cc. MATERIALS: 1 cc Bonus Triad, a Biomet 6.5 x 75 mm, 16 mm partially threaded talocalcaneal screw, a 6.5 x 85 x 16 mm thread partially threaded talocalcaneal screw, a first metatarsal fully threaded 4.0 x 30 mm Biomet screw, 3-0 Nylon, 2-0 Vicryl. INJECTABLES: See anesthesia report for details. INDICATION FOR SURGERY: Bryant is a very pleasant 30-year-old male who has an extensive history due to his pes cavus deformity and pain as a result of the pes cavus. He has had three procedures prior to this surgical intervention. The patient initially presented to me asking for me to cut his leg off. The patient was assessed and the condition was deemed to be manageable with conservative measures at first and initially he responded very well to injections. However, this was quickly unsuccessful in managing his pain. Fxex-omh-dboygrh bracing was attempted as well as custom made orthotics which were not improving his overall condition. The patient indicated that he was willing to proceed with surgical intervention and discussion was had in regards to expectations and outcomes. 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 This was the most likely cause of his pain. He did have a previous reconstruction of the cavus foot however lateralizing osteotomy was performed and over correction took place so that his pathology appeared to be in a valgus position from the hind foot however with a significantly high arch with the apex at the cuneiforms. The patient indicated that he would like to proceed with surgical intervention at this time. He understands all risks, benefits and complications of the surgical intervention including but not limited to delayed wound healing, nonwound healing, delayed bone healing, nonbone healing and a situation called nonunion, possible irritating hardware, possible infection hematoma and seroma and then possible need for surgical intervention in the future if not to further correct the deformity or remove surgical hardware that may be irritating to him. The patient understands all of this and wishes to proceed with surgical intervention at this time. No guarantees were provided as to the outcome of the surgical intervention. Plenty of time was allowed for the patient to ask questions which were answered to the patient's apparent satisfaction prior to surgical intervention. It is with this we decided to proceed with surgical intervention. DESCRIPTION OF PROCEDURE AND FINDINGS: The patient was brought into the OR and placed on the OR table in the supine position. At this time general anesthesia was administered. A well-padded thigh tourniquet was applied to the left lower extremity and the tourniquet was set to 350 mm of Mercury. At this time, an ipsilateral hip bump was applied to the left hip in order to gain mobility of the left lower extremity and then the left lower extremity was prepped and draped in the typical sterile fashion and the surgical extremity was lowered onto the surgical field. At this time attention was directed to the posterior aspect of the calf where a small 3 mm incision was made at the posterior aspect of the possible dell of gastrocnemius muscle belly. A skin incision measuring 3 cm was made at the posterior medial margin this was carried down utilizing a combination of sharp and blunt dissection down to the crural fascia. The crural fascia was incised utilizing a 15 blade and gastrocnemius aponeurosis was identified. At this time [employer] were utilized as retraction and a 10 blade was utilized to incise the aponeurosis of the gastrocnemius being careful not to damage the muscle to a significant level or to the sural nerve on the lateral aspect of the margin of the incision site. This was flushed with copious amounts of sterile saline and the fascial layer was repaired with a single Vicryl stitch. Following this, the subcutaneous tissue was coapted utilizing 2-0 Nylon and then 3-0 Nylon was utilized to coapt the skin edges in a horizontal mattress-type fashion. At this time attention then was directed to the lateral aspect of the calcaneus where bone marrow aspirate harvest was performed. A stab incision was made under fluoroscopy in the safe zone of the calcaneus. A blunt hemostat was utilized to widen the incision to separate any of the neurovascular structures that lie within close proximity to this area and could not risk iatrogenic injury. At this time a trocar was introduced into the calcaneus and bone marrow aspirate was harvested and handed off the field for processing for later use in the procedure. At this time attention was directed to the lateral aspect of the fibula, the distal tip of the fibula and the anterior process of the calcaneus. A linear incision was made utilizing a clean 15 blade through the skin and this was then deepened utilizing a combination of blunt and sharp dissection down to the level of the subtalar joint which was extremely arthritic as indicated on the MRI as well as the radiographs taken previously. At this time the cervical ligament was resected and the subtalar joint was distracted open. A combination of curette, osteotomes and rongeurs were utilized to remove all cartilaginous surface until the flexor hallucis longus tendon was apparently visible at the posterior aspect of incision site. At this time copious amounts of sterile saline were utilized to flush out the surgical site and all remaining cartilage was removed from the graft site. At this time provisional fixation was maintained utilizing 1.2 mm K-wires. The positions were checked on calcaneal axial lateral and AP view in order to assess if the position was adequate to maintain position and to insure that under the calcaneal axial the foot was in rectus to valgus. There was a small amount of valgus noted on the calcaneal axial view which was acceptable. We proceeded with permanent fixation utilizing two - 6.5 mm, 1 x 75 mm and 1 x 85 mm 16 mm thread partially threaded Biomet screws through the talocalcaneal joint this was checked under fluoroscopy in multiple views and deemed to be adequate. At this time attention was then directed to the forefoot where there was still some residual cavus. Attention was directed to the midfoot where the apex of the deformity was. At this time a small dorsomedial incision over the first metatarsal was made. A 15 blade was utilized to make an incision at the dorsomedial aspect of this site measuring approximately 3 cm in length. The base of the first metatarsal was identified and a skin marker was utilized to brittney out the metadiaphyseal junction of the first metatarsal bone. At this time a skin marker was then utilized to make a wedge extending from a dorsal proximal to distal plantar orientation in order to elevate the first metatarsal by 5 to 10 degrees and then an additional cut allowing for a 3 mm wedge was measured out and the sagittal saw was utilized to resect this wedge from the first metatarsal perpendicular to the weightbearing surface. The wedge was removed from the surgical site and gathering of the plantar cortex was performed until the first metatarsal was able to be dorsiflexed into an adequate position. At this time positional fixation was applied utilizing a K-wire this was checked under multiple views and deemed to be in excellent position and without any intraarticular quality. At this time a 4.0 x 30 mm fully threaded screw was applied in a lag technique-type fashion in order to compress the two bone fragments. The final construct was checked under fluoroscopy and deemed to be of excellent quality. At this time the bone marrow aspirate was introduced into the incision sites as well as cancellous bone chips were introduced into the subtalar joint. At this time the remaining incisions were coapted utilizing 2-0 Vicryl for subcutaneous closure and 3-0 Nylon horizontal mattress-type fashion sutures for eversion of skin edges. At this time a dressing consisting of Betadine, Adaptic, 4x4, Kerlix was applied to the left lower extremity followed by a well-padded posterior splint with sugar-tong to the left lower extremity. At this time the tourniquet was let down. Total tourniquet time was 110 total minutes at 350 mm of Mercury. The patient was then provided a postoperative popliteal and saphenous block. The patient handled the procedure and anesthesia without significant complication. The patient was returned to postoperative anesthesia care unit with vital signs stable and vascular status intact. The patient's postoperative orders as indicated in the patient's outpatient chart.
[2021-03-29 16:32] VITALS: BP 128/74; PULSE 91; O2SAT 95
== END 2021-03-27 12:15 | disposition home or self-care (01) ==
LOC: SDC 09:46 → MED SURG 21:04
PROVIDERS: ADMIT Family Medicine; ATTEND Family Medicine
DX: R09.02 Hypoxemia (principal); R79.81 Abnormal blood-gas level; J95.89 Other postprocedural complications and disorders of respiratory system, not elsewhere classified; G89.18 Other acute postprocedural pain; M19.072 Primary osteoarthritis, left ankle and foot; Q66.72 Congenital pes cavus, left foot; Z20.828 Contact with and (suspected) exposure to other viral communicable diseases; Z79.899 Other long term (current) drug therapy; M79.672 Pain in left foot; M25.572 Pain in left ankle and joints of left foot
CPT/HCPCS: 0241U; 20999; 27687; 28306; 28725; 36415; 64488; 73620; 76000; 76937; 76942; 80053; 85025; 93268; 94762; G0378; 64450; 94760; J0690; J1100; J1170; J1885; J2250; J2405; J2704; J2795; J3010; A9270-GY